=== PATIENT | male | born 1990 | race Caucasian/White ===

== ENCOUNTER 2017-08-03 17:40 | Emergency (ER) | payer OTHER ==
[~2017-08-03] VITALS: Ht 175.3 cm; Wt 75.0 kg
[2017-08-03 17:44] VITALS: BP 174/76; PULSE 82; RESP 20; TEMP 98.4; O2SAT 100
--- NOTE | 2017-08-03 18:31 | RADRPT ---
EXAM DATE/TIME: 08/03/2017 18:00 [facility] COMPARISON: No previous studies available for comparison. INDICATIONS : Left foot pain after twisting stepping off [place]. MEDICAL HISTORY : None. SURGICAL HISTORY : None. ENCOUNTER: Initial ACUITY: 1 day PAIN SCORE: 7/10 LOCATION: Left lateral foot. FINDINGS: No definite fractures, or dislocations are identified. No definite lytic or sclerotic lesion is seen . The joint spaces are well maintained. CONCLUSION: Unremarkable study. Demetrio Luna MD on August 03, 2017 at 18:29 Board Certified Radiologist. This report was verified electronically.
--- NOTE | 2017-08-03 18:31 | RADRPT ---
EXAM DATE/TIME: 08/03/2017 18:01 [facility] COMPARISON: No previous studies available for comparison. INDICATIONS : Left ankle pain after twisting stepping off trail[place]. MEDICAL HISTORY : None. SURGICAL HISTORY : None. ENCOUNTER: Initial ACUITY: 1 day PAIN SCORE: 7/10 LOCATION: Left lateral ankle. FINDINGS: No definite fractures, or dislocations are identified. No definite lytic or sclerotic lesion is seen . Soft tissue swelling is identified. CONCLUSION: Soft tissue swelling and no definite fracture for audrey. KGiorgio Luna MD on August 03, 2017 at 18:29 Board Certified Radiologist. This report was verified electronically.
--- NOTE | 2017-08-03 18:43 | PD ---
HPI Chief Complaint: Musculoskeletal Complaint Time Seen by Provider: 17:56 Travel History International Travel<30 days: No Contact w/Intl Traveler<30days: No Traveled to known affect area: No History of Present Illness HPI 26-year-old male presents for evaluation of left ankle pain. Prior to arrival The patient reports that he jumped out of a trailer and his left foot landed on the box causing an inversion mechanism injury to his left ankle. Since then he has had pain and swelling to the lateral left ankle which is throbbing, constant , worse with movement. He has not attempted to ambulate on the left ankle. He has no other complaints at this time. [facility] Social History Alcohol Use: No Tobacco Use: No Allergies-Medications (Allergen,Severity, Reaction): Coded Allergies: No Known Allergies (Verified Allergy, Unknown, 08/03/17) Reported Meds & Prescriptions Reported Meds & Active Scripts Active No Active Prescriptions or Reported Medications Review of Systems Musculoskeletal: Positive: Limited ROM, Pain Skin: Positive Other (denies open wounds) Physical Exam Narrative GENERAL: Well-developed well-nourished male in no acute distress SKIN: Warm and dry. CARDIOVASCULAR: Regular rate and rhythm. No murmur appreciated. RESPIRATORY: No accessory muscle use. Clear to auscultation. Breath sounds equal bilaterally. MUSCULOSKELETAL: There is some soft tissue swelling around the left ankle lateral malleolus with associated tenderness to palpation. There is pain with dorsi and plantar flexion of the left ankle which is slightly limited. The Achilles tendon is intact and nontender. There is no tenderness to palpation to the medial left ankle. No tenderness to palpation to the left foot. 2+ dorsalis pedis pulse. NEUROLOGICAL: Awake and alert. No obvious cranial nerve deficits. Motor grossly within normal limits. Normal speech. Data Data Last Documented VS Vital Signs Date Time Temp Pulse Resp B/P (MAP) Pulse Ox O2 Delivery O2 Flow Rate FiO2 08/03/17 17:44 98.4 82 20 174/76 (108) 100 Orders Orders Ankle, Complete ([id number]) (08/03/17 ) Foot, Complete ([id number]) (08/03/17 ) Splint Or Brace Apply/Monitor (08/03/17 18:39) Ed Discharge Order (08/03/17 18:39) Crutches (08/03/17 18:39) MDM Medical Decision Making Medical Screen Exam Complete: Yes Emergency Medical Condition: Yes Medical Record Reviewed: Yes Differential Diagnosis Lateral ankle sprain, avulsion fracture, fibula fracture Narrative Course X-ray imaging of left ankle and foot was obtained revealing soft tissue swelling with no acute bony abnormality. The patient was given an ice pack. He declines NSAID administration at this time. He will be given ankle stirrup splint and crutches for his lateral left ankle sprain. Diagnosis Primary Impression: Left ankle sprain Additional Instructions: Ice the affected area several times a day 20 minutes at a time over the next few days to reduce swelling. Elevate. Immobilization with ankle splint. Crutches as needed. Once the swelling has resolved, perform range of motion activities as discussed. After that point gradually return to normal activities avoiding activities that exacerbate her pain. Take Tylenol or ibuprofen as needed for pain per dosing instructions on bottle over-the- counter. Follow-up with primary care physician in 2 weeks. Return for any emergent medical conditions. Med/Other Pt SpecificInfo: Orthopedic Instructions Scripts No Active Prescriptions or Reported Meds Disposition: 01 DISCHARGE HOME Condition: Stable Karsten Blanco Aug 03, 2017 18:43
== END 2017-08-03 19:04 | disposition home or self-care (01) ==
LOC: NEPK 17:40
DX: S93.402A Sprain of unspecified ligament of left ankle, initial encounter (principal); X50.1XXA Overexertion from prolonged static or awkward postures, initial encounter
CPT/HCPCS: 73610; 73630; 99283; E0113; L1906